=== PATIENT | male | born 1995 | race Caucasian/White ===

== ENCOUNTER 2023-10-21 07:10 | Day surgery (SDC) | payer OTHER, SELFPAY ==
[2023-10-21 11:38] VITALS: BP 140/96
[2023-10-21 15:30] VITALS: BP 140/96
[2023-10-21 15:32] VITALS: BP 106/57
[2023-10-21 15:45] VITALS: BP 112/70
--- NOTE | 2023-10-21 15:49 | OR.RPT ---
Operative Report
Operative Report
DATE OF OPERATION: 10/21/2023
SURGEON: Catracho Victor MD
PREOPERATIVE DIAGNOSIS: Anal lesion, internal hemorrhoids
POSTOPERATIVE DIAGNOSIS: Anal lesion, internal hemorrhoids
OPERATION: Exam under anesthesia, biopsy of anal lesions x 2, bilateral pudendal nerve block
ASSISTANTS:
1. None
ANESTHESIA: MAC w/ local
ESTIMATED BLOOD LOSS: 5 mL
FINDINGS:
1. Small fold of perianal skin in the left posterior quadrant, most consistent with skin tag; biopsied to rule out anal wart
2. Small right anterior anal canal lesion, most likely anal papilla; biopsied to rule out anal wart
SPECIMENS:
1. Left posterior perianal lesion
2. Right posterior anal canal lesion
DRAINS: None
COMPLICATIONS: None
INDICATIONS: The patient is a 28-year-old male who was found to have a small perianal lesion concerning for skin tag versus wart, as well as small right anterior hemorrhoid. I recommended an EUA to biopsy the small lesion and for possible
hemorrhoid ligation.
The operation was discussed with the patient in detail, including the risks, benefits and alternatives. Risks described included, but not limited to bleeding, infection, damage to nearby structures such as the anal sphincter, fecal incontinence,
urinary retention, and anesthetic risks. The patient understood and agreed to proceed. The consent was signed and placed in the chart.
PROCEDURE IN DETAIL: The patient was taken to the operating room and placed on the operating table in vik-knife prone position. Sequential compression devices were placed bilaterally. Sedation was commenced without complication. Two seat belts
were secured around the legs and upper back. The buttocks were taped apart. The perineum was shaved, prepped and draped in the usual fashion. A time-out was then performed verifying the correct patient, procedure, operative site, positioning, and
special equipment.
Local anesthesia used was a mixture of 60 mL of 0.25% Marcaine and 0.6 mL of dexamethasone. 40 mL was injected perianally at the beginning of the case. The anorectal exam was performed assessing all four quadrants of the anal canal using
Hill-Carney retractors in progressively increasing size. A small perianal lesion noted in the left anterior quadrant. This appeared more like a skin tag on today's examination. A small anal papilla versus anal wart noted in the right posterior
quadrant of the anal canal. Patient's internal hemorrhoids were very mild, essentially physiologic in size. They were not irritated, swollen or bleeding. Therefore, I decided to forego a hemorrhoid ligation as his symptoms had resolved. If his
symptoms recur, these hemorrhoids would be good candidates for rubber band ligation in the office.
I proceeded with a biopsy of the left posterior perianal area and anal lesion. I grasped the lesion with a Peruvian forceps, elevated, and excised it with a Metzenbaum scissors. This was passed off as specimen. The wound was cauterized and
hemostasis achieved. I biopsied the right posterior anal canal lesion using the same method. The wound was cauterized and hemostasis achieved. The remaining 20 mL of local were injected. 5 mL was injected bilaterally for a pudendal nerve block.
10 mL was injected around the surgical site and perianally.
At this point, the procedure was complete. All needle, sponge and instrument counts were correct. The patient tolerated the procedure well and was transferred to the recovery room in stable condition.
DICTATED BY: Catracho Victor MD
[2023-10-21 16:00] VITALS: BP 104/73
[2023-10-21 16:30] VITALS: BP 129/85
--- NOTE | 2023-10-21 17:19 | W.IMMPOSTOP ---
Surgical Immed Post Op Note
-
Primary Surgeon: Catracho Victor MD
Assisting Surgeon: none
Pre-op Diagnosis: anal lesion, internal hemorrhoids
Post-op Diagnosis: anal lesion, internal hemorrhoids
Procedure Performed: EUA, biopsy of anal and perianal lesion
Anesthesia Type: MAC w/ local
Specimen / Cultures: right posterior anal lesion, left posterior perianal lesion
Estimated Blood Loss: 5mL
Complications: none
Operative Findings: per op note
== END 2023-10-21 16:52 | disposition home or self-care (01) ==
LOC: SDS 07:10
PROVIDERS: ATTENDING PHYSICIAN Surgery
DX: K62.9 Disease of anus and rectum, unspecified (principal); K64.8 Other hemorrhoids; K64.4 Residual hemorrhoidal skin tags
CPT/HCPCS: 46922; 88304; 88305

== ENCOUNTER → 2024-04-24 17:22 | Outpatient (REF) | payer OTHER, SELFPAY | LOC: RAD 17:22 | PROVIDERS: ATTENDING PHYSICIAN Urology; FAMILY PHYSICIAN Family Medicine | DX: R35.0 Frequency of micturition (principal) | CPT/HCPCS: 76870; 93976 ==